=== PATIENT | male | born 1985 | race Hispanic/Latino ===

== ENCOUNTER 2016-04-30 21:40 | Inpatient (IN) | payer MEDICAID ==
[2016-05-01] MEDS ORDERED: NACL 0.9% 1000 ML 1,000 ML IV ONE (08:36)
[2016-05-01] MEDS ORDERED: ZOSYN/NS 4.5GM/100ML 4.5 GM/100 ML VIAL IV ONE ×2 (08:36→10:02)
[2016-05-01] MEDS ORDERED: VANCOMYCIN VIAL 1,250 MG in NACL 0.9% 250ML 250 ML IV ONE (09:00)
[2016-05-01] MEDS ORDERED: VANCOMYCIN PHARMACY TO DOSE IV SCH (09:00)
[2016-05-01 09:31] LABS: Alanine Aminotransferase 31 units/L (7-56); Albumin 4.2 g/dL (3.9-5); Albumin/Globulin Ratio 1.1 %; Alkaline Phosphatase 77 units/L (35-129); Anion Gap 18 mmol/L; Bilirubin,Direct 0.2 mg/dL (0-0.2); Bilirubin,Total 1.2 mg/dL (0.1-1.2); Blood Urea Nitrogen 8 mg/dL (9-20); Calcium 9.7 mg/dL (8.4-10.2); Carbon Dioxide 26 mmol/L (22-30); Chloride 94.9 mmol/L (98-107); Glucose 208 mg/dL (75-100); Potassium 4.6 mmol/L (3.6-5.0); Sodium 134 mmol/L (137-145)
[2016-05-01 09:36] LABS: INR 1.04 (0.87-1.13)
[2016-05-01 09:41] LABS: Hemoglobin TNR gm/dl (11.8-15.2); Red Blood Count TNR M/mm3 (3.65-5.03); White Blood Count TNR K/mm3 (4.5-11.0)
[2016-05-01 09:42] LABS: Hematocrit TNR % (35.5-45.6); Mean Corpuscular HGB Conc TNR % (32-34); Mean Corpuscular Hemoglobin TNR pg (28-32); Mean Corpuscular Volume TNR fl (84-94)
[2016-05-01 09:48] LABS: Mean Platelet Volume TNR fl (6-12); Platelet Count TNR K/mm3 (140-440); Red Cell Distribution Width TNR % (13.2-15.2)
[2016-05-01 09:49] LABS: Basophils % (Auto) TNR % (0.0-1.8); Eosinophils % (Auto) TNR % (0.0-4.3)
[2016-05-01 09:50] LABS: Diff Status TNR
[2016-05-01] MEDS ORDERED: MILK OF MAGNESIA PO PRN (09:58)
[2016-05-01] MEDS ORDERED: D50W (25GM) IV PRN (09:58)
[2016-05-01] MEDS ORDERED: DULCOLAX PR PRN (09:58)
[2016-05-01] MEDS ORDERED: PERCOCET 5/325 PO PRN (09:58)
[2016-05-01] MEDS ORDERED: TYLENOL PO PRN (09:58)
[2016-05-01] MEDS ORDERED: ZOFRAN IV PRN (09:58)
[2016-05-01] MEDS ORDERED: MORPHINE IV PRN (09:58)
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
[2016-05-01] MEDS ORDERED: LOVENOX SUB-Q SCH (10:00)
[2016-05-01] MEDS ORDERED: SYNTHROID PO SCH (10:00)
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
[2016-05-01 10:08] LABS: Basophils % (Auto) 0.8 % (0.0-1.8); Eosinophils % (Auto) 0.4 % (0.0-4.3); Hematocrit 41.4 % (35.5-45.6); Hemoglobin 14.1 gm/dl (11.8-15.2); Mean Corpuscular HGB Conc 34 % (32-34); Mean Corpuscular Hemoglobin 27 pg (28-32); Mean Corpuscular Volume 79 fl (84-94); Platelet Count 199 K/mm3 (140-440); Red Blood Count 5.25 M/mm3 (3.65-5.03); Red Cell Distribution Width 13.2 % (13.2-15.2); White Blood Count 11.2 K/mm3 (4.5-11.0)
[2016-05-01] MEDS ORDERED: BABY ASPIRIN PO ONE (10:09)
--- NOTE | 2016-05-01 10:17 | XRay Report ---
AP CHEST :05/01/16 CLINICAL: Fever. COMPARISON:08/01/10 FINDINGS: Normal heart and pulmonary vasculature. The lungs are normally expanded and clear. The bones and soft tissues are normal. IMPRESSION: Normal chest.
--- NOTE | 2016-05-01 10:19 | XRay Report ---
RIGHT FOOT 2 VIEWS: 05/01/16 08:39:00 CLINICAL: Diabetic foot infection. FINDINGS: Moderate soft tissue swelling of the forefoot and midfoot. No soft tissue air or firm body. No erosive changes in the bones. The bones of the midfoot are fused. IMPRESSION: Nonspecific soft tissue edema no signs of osteomyelitis. Neuropathic changes in the midfoot.
[2016-05-01 11:12] LABS: Bilirubin,Urine NEG (Negative); Blood,Urine NEG (Negative); Ketones,Urine NEG (Negative); Leukocyte Esterase,Urine NEG (Negative); Mucus,Urine FEW /HPF; Nitrite,Urine NEG (Negative); Protein,Urine <15 mg/dL mg/dL (Negative); Urobilinogen,Urine < 2.0 mg/dL (<2.0); WBC,Urine < 1.0 /HPF (0.0-6.0)
[2016-05-01] MEDS: LOVENOX SUB-Q SCH (12:04)
[2016-05-01] MEDS: NEURONTIN PO SCH ×3 (12:04→23:31)
[2016-05-01] MEDS: GLUCOPHAGE PO SCH (12:04)
[2016-05-01] MEDS: SYNTHROID PO SCH (13:07)
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
[2016-05-01] MEDS: ZOSYN/NS 4.5GM/100ML 4.5 GM/100 ML VIAL IV SCH (17:09)
[2016-05-01] MEDS ORDERED: NON-FORMULARY (Lovastatin [Altoprev] 40 MG) PO SCH (18:00)
[2016-05-01] MEDS: NACL 0.9% 1000 ML 1,000 ML IV SCH (18:48)
[2016-05-01] MEDS ORDERED: VANCOMYCIN VIAL 1,250 MG in NACL 0.9% 250ML 250 ML IV SCH (22:00)
[2016-05-01] MEDS: ZOCOR PO SCH (23:30)
--- NOTE | 2016-05-02 01:36 | Admit Criteria Form ---
Admission Criteria Documentation: SKIN AND WOUND CARE Clinical Indications for Inpatient Care (Place 'X' for any and all applicable criteria): Ongoing inpatient care may be indicated for pressure, venous, arterial, or neuropathic ulcers, with ANY ONE of the following (2)(3)(8)(9)(21)(25): [ ]I. Need for ANY ONE of the following(26) [ ]a) Pressure ulcer closure procedures [ ]b) Skin grafting [ ]c) Wound debridement [ ]d) Dressing change under general anesthesia [ ]e) Arterial revascularization procedures(19) (Also use Aortofemoral or Aortoiliac Bypass or Femoral Popliteal Bypass Criteria as appropriate) [ ]f) Amputation (Also use Foot: Transmetatarsal Amputation or Knee: Amputation Above or Below Knee Criteria as appropriate) [ ]g) Diverting colostomy [ ]h) Other significant surgical treatment [X ]II. Infection requiring inpatient care as indicated by ALL of the following (27) [ X]a) ANY ONE of the following signs of infection: [ ]i) Poorly approximated incision line. [ X]ii) Excessive drainage [ ]iii) Foul odor [ ]iv) Pus [ ]v) Increased redness [ ]vi) Breakdown in tissue after suture removal [ ]vii) Fever [ X]b) ANY ONE of the following findings: [ ]i) Mental status changes [ ]ii) Dehydration [ ]iii) Bacteremia [ ]iv) Perineal infection [ ]v) Hemodynamic instability [X ]vi) High-risk conditions, such as ANY ONE of the following: [ X]1) Poorly controlled diabetes [ ]2) Cirrhosis [ ]3) Neutropenia [ ]4) Asplenia [ ]5) HIV infection [ ]6) Immunosuppression Extended stay beyond goal length of stay for primary condition may be needed until ALL of the following are present(1)(2)(13)(21)(27): [ ]a) Tissue necrosis absent or treatment plan manageable at lower level of care [ ]b) Fistulas, tunneling, or underlying deep tissue infection absent or treated [ ]c) Purulence and tissue breakdown absent or improved [ ]d) Ulcer surgical repair absent or healing without complications [ ]e) Wound infection absent or manageable at lower level of care [ ]f) Comorbidities absent or manageable at lower level of care The original [facility] [employer] content created by Rafat Chávez has been revised. The portions of the content which have been revised are identified through the use of italic text or in bold, and [facility] has neither reviewed nor approved the modified material. All other unmodified content is copyright [facility]. Please see references footnoted in the original [facility] edition 2016 Admission Criteria Met: Yes
[2016-05-02] MEDS: ZOSYN/NS 4.5GM/100ML 4.5 GM/100 ML VIAL IV SCH ×3 (04:18→17:00)
[2016-05-02] MEDS: NEURONTIN PO SCH ×3 (06:21→21:48)
[2016-05-02] MEDS: SYNTHROID PO SCH (06:21)
[2016-05-02 08:53] LABS: Basophils % (Auto) 0.2 % (0.0-1.8); Eosinophils % (Auto) 1.3 % (0.0-4.3); Hematocrit 39.1 % (35.5-45.6); Hemoglobin 12.9 gm/dl (11.8-15.2); Mean Corpuscular HGB Conc 33 % (32-34); Mean Corpuscular Hemoglobin 26 pg (28-32); Mean Corpuscular Volume 79 fl (84-94); Platelet Count 187 K/mm3 (140-440); Red Blood Count 4.97 M/mm3 (3.65-5.03); Red Cell Distribution Width 13.2 % (13.2-15.2); White Blood Count 8.5 K/mm3 (4.5-11.0)
[2016-05-02 09:12] LABS: Alanine Aminotransferase 28 units/L (7-56); Albumin 3.4 g/dL (3.9-5); Albumin/Globulin Ratio 1.1 %; Alkaline Phosphatase 61 units/L (35-129); Anion Gap 18 mmol/L; BUN/Creatinine Ratio 8.75; Blood Urea Nitrogen 7 mg/dL (9-20); Calcium 8.8 mg/dL (8.4-10.2); Carbon Dioxide 25 mmol/L (22-30); Chloride 101.1 mmol/L (98-107); Glucose 170 mg/dL (75-100); Sodium 140 mmol/L (137-145); Total Protein 6.6 g/dL (6.3-8.2)
[2016-05-02] MEDS: VANCOMYCIN/NS 1 GM/250 ML 1 GM/250 ML BAG IV SCH ×2 (10:00→19:40)
[2016-05-02] MEDS: LOVENOX SUB-Q SCH (10:00)
[2016-05-02] MEDS: GLUCOPHAGE PO SCH (10:01)
--- NOTE | 2016-05-02 10:18 | Magnetic Resonance Report ---
MRI RIGHT FOOT WITHOUT AND WITH CONTRAST: 05/02/16 16:51:00 CLINICAL: Diabetic foot infection. COMPARISON:05/01/16 foot x-ray TECHNIQUE: Sagittal, coronal and axial T1, coronal and axial T2 fat sat, sagittal STIR and sagittal, coronal and axial postcontrast T1 fat sat sequences on a 1.5 [place] magnet. 12 cc of Multihance was injected intravenously for the contrast portion of the exam and consent was obtained prior to the administration of contrast. FINDINGS: Soft tissue edema of the dorsum of the forefoot and midfoot and soft tissue edema of the lateral ankle. Deep soft tissue edema but no abscess. The bones have normal marrow signal on T1 and there are no erosive changes in the bones. The fifth toe demonstrates mild hyperintense signal on STIR and T1 fat-sat postcontrast sequences but the marrow signal is normal on T1 without fat sat. No abnormal marrow enhancement or lack of enhancement. IMPRESSION: Cellulitis with greater involvement of the dorsum of the foot and the lateral ankle soft tissues. No abscess. No definitive signs of osteomyelitis.
--- NOTE | 2016-05-02 11:58 | Consultation ---
History of Present Illness - Reason for Consult Consult date: 05/02/16 Right foot gangrene - History of Present Illness The pateint is a 30-year-old male with a history of a crush injury to his right foot approximately 11 years ago. He underwent multiple procedures including skin grafting at that time. He currently follows with Dr. Dos Santos podiatry. He presents with ischemic ulcerations first metatarsal and fifth metatarsal. His posterior tibial pulses are symmetric bilaterally. Faint dorsalis pedis pulse on the right. Palpable dorsalis his pulse on the left. No significant complaints of pain or drainage. Past History Past Medical History: diabetes, hyperlipidemia, hypothyroidism Past Surgical History: Other (multiple reconstructive right foot surgeries) Social history: no significant social history Family history: no significant family history Medications and Allergies Allergies Allergy/AdvReac Type Severity Reaction Status Date / Time No Known Allergies Allergy Verified 11/05/15 00:54 Home Medications Medication Instructions Recorded Confirmed Last Taken Type Gabapentin [Neurontin] 300 mg PO Q8HR 11/05/15 05/01/16 1 Day Ago History 300 Levothyroxine [Synthroid] 75 mcg PO QAM 11/05/15 05/01/16 1 Day Ago History 75 Lovastatin [Altoprev] 40 mg PO QPM 11/05/15 05/01/16 1 Day Ago History 40 Metformin HCl [Glucophage] 500 mg PO DAILY 11/05/15 05/01/16 1 Day Ago History 500 Cephalexin [Keflex] 500 mg PO Q12HR 05/01/16 05/01/16 Unknown History Active Meds: Active Medications Acetaminophen (Tylenol) 650 mg PO Q4H PRN PRN Reason: Pain MILD(1-3)/Fever >100.5/BELCHER Bisacodyl (Dulcolax) 10 mg CA QDAY PRN PRN Reason: Constipation unrelieved by MOM Dextrose (D50w (25gm)) 50 ml IV PRN PRN PRN Reason: Hypoglycemia Enoxaparin Sodium (Lovenox) 40 mg SUB-Q QDAY@1000 DAVID Last Admin: 05/02/16 10:00 Dose: 40 mg Gabapentin (Neurontin) 300 mg PO Q8HR DAVID Last Admin: 05/02/16 06:21 Dose: 300 mg Sodium Chloride (Nacl 0.9% 1000 Ml) 1,000 mls @ 100 mls/hr IV DIRECT DAVID Last Admin: 05/01/16 18:48 Dose: 100 mls/hr Piperacillin Sod/Tazobactam Sod (Zosyn/Ns 4.5gm/100ml) 4.5 gm in 100 mls @ 200 mls/hr IV Q8H [facility] Last Admin: 05/02/16 04:18 Dose: 200 mls/hr Vancomycin HCl (Vancomycin/Ns 1 Gm/250 Ml) 1 gm in 250 mls @ 166.667 mls/hr IV Q8H [facility] Last Admin: 05/02/16 10:00 Dose: 166.667 mls/hr Insulin Human Regular (Novolin R) 0 units SUB-Q ACHS [facility] PRN Reason: Protocol Last Admin: 05/02/16 07:57 Dose: Not Given Levothyroxine Sodium (Synthroid) 75 mcg PO DAILY@0600 [facility] Last Admin: 05/02/16 06:21 Dose: 75 mcg Magnesium Hydroxide (Milk Of Magnesia) 30 ml PO Q4H PRN PRN Reason: Constipation Metformin HCl (Glucophage) 500 mg PO DAILY [facility] Last Admin: 05/02/16 10:01 Dose: 500 mg Morphine Sulfate (Morphine) 2 mg IV Q4H PRN PRN Reason: Pain, Moderate (4-6) Ondansetron HCl (Zofran) 4 mg IV Q8H PRN PRN Reason: N/V unrelieved by Reglan Oxycodone/Acetaminophen (Percocet 5/325) 1 tab PO Q6H PRN PRN Reason: Pain, Moderate (4-6) Simvastatin (Zocor) 20 mg PO QHS [facility] Last Admin: 05/01/16 23:30 Dose: 20 mg Vancomycin HCl (Vancomycin Pharmacy To Dose) 1 each IV PKCONSULT [facility] PRN Reason: Protocol Review of Systems All systems: negative Exam - Constitutional Vitals: Temp Pulse Resp BP Pulse Ox 97.6 F 74 18 104/74 99 05/02/16 08:20 05/02/16 08:20 05/02/16 08:20 05/02/16 08:20 05/02/16 08:20 General appearance: Present: no acute distress - EENT Eyes: Present: PERRL, EOM intact ENT: hearing intact - Neck Neck: Present: supple, normal ROM - Respiratory Respiratory effort: normal - Extremities Extremities: abnormal (per HPI) - Abdominal General gastrointestinal: Present: deferred Male genitourinary: Present: deferred - Rectal Rectal Exam: deferred - Psychiatric Psychiatric: appropriate mood/affect, cooperative - Neurologic Neurologic: CNII-XII intact, no focal deficits Results - Labs CBC & Chem 7: 05/02/16 08:04 05/02/16 08:04 Labs: Abnormal lab results 05/01/16 05/02/16 05/02/16 Range/Units 21:45 06:50 08:04 MCV 79 L (84-94) fl MCH 26 L (28-32) pg Haskell % (Auto) 9.3 H (0.0-7.3) % Seg Neutrophils % 71.7 H (40.0-70.0) % BUN (9-20) mg/dL Glucose (75-100) mg/dL POC Glucose 172 H 147 H (70-105) Albumin (3.9-5) g/dL 05/02/16 Range/Units 08:04 MCV (84-94) fl MCH (28-32) pg Haskell % (Auto) (0.0-7.3) % Seg Neutrophils % (40.0-70.0) % BUN 7 L (9-20) mg/dL Glucose 170 H (75-100) mg/dL POC Glucose (70-105) Albumin 3.4 L (3.9-5) g/dL Assessment and Plan Patient with focal ischemic changes to the plantar aspect of his right foot distally. Would suspect his crush injury resulted in aberrant arterial flow to his digits. We'll obtain a vascular lab ultrasound however, the patient may ultimately require angiography to determine the vascular inflow to the foot. Additionally, would recommend consultation with the patient's desk assistant Dr. Dos Santos.
--- NOTE | 2016-05-02 12:21 | Progress Note ---
Assessment and Plan Assessment and plan: Patient is a 30-year-old male with past medical history of diabetes mellitus, hypertension, hyperlipidemia, currently with right foot ulcer that is followed by Dr. Dos Santos, presented to the hospital with red and swollen right foot for the history of multiple traumas as far back as 1995. He has not had any previous surgery. Remarkably, they state he "almost lost his foot once due to infection" while they are presenting very late for care. - Patient Problems (1) Diabetic infection of right foot Current Visit: Yes Status: Acute Plan to address problem: -With cellulitis rule out osteomyelitis rule out abscess -ID input appreciated, continue to await cultures. -Consult wound care -Continue antibiotics at this point (2) Hyperlipidemia Current Visit: Yes Status: Acute Qualifiers: Hyperlipidemia type: H Plan to address problem: Continue statin (3) Hypertension Current Visit: Yes Status: Acute Qualifiers: Hypertension type: H Plan to address problem: Continue blood pressure control (4) Diabetes mellitus Current Visit: Yes Status: Acute Qualifiers: Diabetes mellitus type: D Diabetes mellitus complication status: D Diabetes mellitus complication detail: D Diabetic retinopathy severity: D Proliferative retinopathy type: P Diabetes mellitus macular edema: D Diabetes mellitus correction insulin use: D Laterality: L Chronic kidney disease stage: C Plan to address problem: Continue metformin and insulin sliding scales. Accu-Cheks before meals and daily at bedtime. History Interval history: Follow-up right foods ulcer Patient seen and examined this morning in no acute distress Denies any chest pain, nausea, vomiting, diarrhea No fever noted blood pressure controlled No adverse events reported to me by nursing staff Hospitalist Physical - Physical exam Narrative exam: VITAL SIGNS: Reviewed. GENERAL: The patient appeared well nourished and normally developed. Vital signs as documented. HEAD: No signs of head trauma. EYES: Pupils are equal. Extraocular motions intact. EARS: Hearing grossly intact. MOUTH: Oropharynx is normal. NECK: No adenopathy, no JVD. CHEST: Chest with clear breath sounds bilaterally. No wheezes, rales, or rhonchi. CARDIAC: Regular rate and rhythm. S1 and S2, without murmurs, gallops, or rubs. VASCULAR: No Edema. Peripheral pulses normal and equal in all extremities. ABDOMEN: Soft, without detectable tenderness. No sign of distention. No rebound or guarding, and no masses palpated. Bowel Sounds normal. MUSCULOSKELETAL: Right foot toe with drainage serosanguineous. NEUROLOGIC EXAM: Alert and oriented x 3. No focal sensory or strength deficits. Speech normal. Follows commands. PSYCHIATRIC: Mood normal. SKIN: No rash or lesions. - Constitutional Vitals: Temp Pulse Resp BP Pulse Ox 97.6 F 74 18 104/74 99 05/02/16 08:20 05/02/16 08:20 05/02/16 08:20 05/02/16 08:20 05/02/16 08:20 General appearance: Present: no acute distress Results - Labs CBC & Chem 7: 05/02/16 08:04 05/02/16 08:04 Labs: Laboratory Last Values WBC 8.5 K/mm3 (4.5-11.0) 05/02/16 08:04 RBC 4.97 M/mm3 (3.65-5.03) 05/02/16 08:04 Hgb 12.9 gm/dl (11.8-15.2) 05/02/16 08:04 Hct 39.1 % (35.5-45.6) 05/02/16 08:04 MCV 79 fl (84-94) L 05/02/16 08:04 MCH 26 pg (28-32) L 05/02/16 08:04 MCHC 33 % (32-34) 05/02/16 08:04 RDW 13.2 % (13.2-15.2) 05/02/16 08:04 Plt Count 187 K/mm3 (140-440) 05/02/16 08:04 Lymph % (Auto) 17.5 % (13.4-35.0) 05/02/16 08:04 Mckean % (Auto) 9.3 % (0.0-7.3) H 05/02/16 08:04 Eos % (Auto) 1.3 % (0.0-4.3) 05/02/16 08:04 Baso % (Auto) 0.2 % (0.0-1.8) 05/02/16 08:04 Lymph # 1.5 K/mm3 (1.2-5.4) 05/02/16 08:04 Mckean # 0.8 K/mm3 (0.0-0.8) 05/02/16 08:04 Eos # 0.1 K/mm3 (0.0-0.4) 05/02/16 08:04 Baso # 0.0 K/mm3 (0.0-0.1) 05/02/16 08:04 Add Manual Diff TNR 05/01/16 08:45 Seg Neutrophils % 71.7 % (40.0-70.0) H 05/02/16 08:04 Seg Neutrophils # 6.1 K/mm3 (1.8-7.7) 05/02/16 08:04 PT 13.5 Sec. (12.2-14.9) 05/01/16 08:45 INR 1.04 (0.87-1.13) 05/01/16 08:45 Sodium 140 mmol/L (137-145) 05/02/16 08:04 Potassium 4.0 mmol/L (3.6-5.0) 05/02/16 08:04 Chloride 101.1 mmol/L (98-107) 05/02/16 08:04 Carbon Dioxide 25 mmol/L (22-30) 05/02/16 08:04 Anion Gap 18 mmol/L 05/02/16 08:04 BUN 7 mg/dL (9-20) L 05/02/16 08:04 Creatinine 0.8 mg/dL (0.8-1.5) 05/02/16 08:04 Estimated GFR > 60 ml/min 05/02/16 08:04 BUN/Creatinine Ratio 8.75 % 05/02/16 08:04 Glucose 170 mg/dL (75-100) H 05/02/16 08:04 POC Glucose 206 (70-105) H 05/02/16 11:56 Lactic Acid 1.7 mmol/L (0.7-2.0) 05/01/16 08:45 Calcium 8.8 mg/dL (8.4-10.2) 05/02/16 08:04 Total Bilirubin 1.0 mg/dL (0.1-1.2) 05/02/16 08:04 Direct Bilirubin 0.2 mg/dL (0-0.2) 05/01/16 08:45 Indirect Bilirubin 1.0 mg/dL 05/01/16 08:45 AST 17 units/L (5-40) 05/02/16 08:04 ALT 28 units/L (7-56) 05/02/16 08:04 Alkaline Phosphatase 61 units/L (35-129) 05/02/16 08:04 C-Reactive Protein 11.10 mg/dL (0.00-1.30) H 05/01/16 08:45 Total Protein 6.6 g/dL (6.3-8.2) 05/02/16 08:04 Albumin 3.4 g/dL (3.9-5) L 05/02/16 08:04 Albumin/Globulin Ratio 1.1 % 05/02/16 08:04 Urine Color Yellow (Yellow) 05/01/16 10:45 Urine Turbidity Clear (Clear) 05/01/16 10:45 Urine pH 5.0 (5.0-7.0) 05/01/16 10:45 Ur Specific Elba 1.012 (1.003-1.030) 05/01/16 10:45 Urine Protein <15 mg/dl mg/dL (Negative) 05/01/16 10:45 Urine Glucose (UA) >=500 mg/dL (Negative) 05/01/16 10:45 Urine Ketones Neg mg/dL (Negative) 05/01/16 10:45 Urine Blood Neg (Negative) 05/01/16 10:45 Urine Nitrite Neg (Negative) 05/01/16 10:45 Urine Bilirubin Neg (Negative) 05/01/16 10:45 Urine Urobilinogen < 2.0 mg/dL (<2.0) 05/01/16 10:45 Ur Leukocyte Esterase Neg (Negative) 05/01/16 10:45 Urine WBC (Auto) < 1.0 /HPF (0.0-6.0) 05/01/16 10:45 Urine RBC (Auto) 2.0 /HPF (0.0-6.0) 05/01/16 10:45 U Epithel Cells (Auto) < 1.0 /HPF (0-13.0) 05/01/16 10:45 Urine Mucus Few /HPF 05/01/16 10:45 - Imaging and Cardiology Chest x-ray: image reviewed (no acute pathology on my personal review) Imaging and Cardiology: X-ray also does not show any evidence of osteomyelitis.
[2016-05-02] MEDS: ZOCOR PO SCH (21:48)
[2016-05-02] MEDS: NACL 0.9% 1000 ML 1,000 ML IV SCH (23:10)
[2016-05-03] MEDS: ZOSYN/NS 4.5GM/100ML 4.5 GM/100 ML VIAL IV SCH ×2 (02:01→08:00)
[2016-05-03] MEDS: VANCOMYCIN/NS 1 GM/250 ML 1 GM/250 ML BAG IV SCH ×2 (02:03→10:00)
[2016-05-03] MEDS: NEURONTIN PO SCH ×2 (06:03→13:18)
[2016-05-03] MEDS: SYNTHROID PO SCH (06:04)
[2016-05-03 06:05] LABS: Hematocrit 37.7 % (35.5-45.6); Hemoglobin 12.6 gm/dl (11.8-15.2); Mean Corpuscular HGB Conc 34 % (32-34); Mean Corpuscular Hemoglobin 26 pg (28-32); Mean Corpuscular Volume 78 fl (84-94); Platelet Count 181 K/mm3 (140-440); Red Blood Count 4.81 M/mm3 (3.65-5.03); Red Cell Distribution Width 13.2 % (13.2-15.2); White Blood Count 7.7 K/mm3 (4.5-11.0)
[2016-05-03 06:39] LABS: Anion Gap 16 mmol/L; Blood Urea Nitrogen 6 mg/dL (9-20); Calcium 8.9 mg/dL (8.4-10.2); Carbon Dioxide 28 mmol/L (22-30); Chloride 100.8 mmol/L (98-107); Glucose 132 mg/dL (75-100); Potassium 3.9 mmol/L (3.6-5.0); Sodium 141 mmol/L (137-145)
--- NOTE | 2016-05-03 09:17 | Discharge Summary ---
Providers - Providers Date of Admission: 05/01/16 12:48 Date of discharge: 05/03/16 Attending physician: KAYE CONROY MD 05/01/16 14:31 Consult to Physician [CONS] Routine Consulting Provider: SISSY CORBIN Reason For Exam: diabetic foot infection Place consult to:: ID Notified:: Y Was contact made?: Yes If yes, spoke with:: A/S RADHA Time called:: 14:45 05/02/16 11:08 Consult to Wound/ET Nurse [CONS] Routine Reason For Exam: wound eval Primary care physician: [employer] Hospitalization Reason for admission: Diabetic foot infection Condition: Stable Hospital course: Pancho Cazares is a 30 y/o male with type 2 DM with associated neuropathy, hyperlipidemia, and hypothyroidism who has a history of right foot trauma w 1995 and has been followed by his scientific informatics analyst, Dr. Dos Santos for right foot diabetic ulcers who was admitted to [facility] on 05/01/16 with worsening right foot pain, redness and swelling over 1 week's time with bloody discharge from the base of his right fifth toe. Patient on admission did not demonstrate any fever. He did have culture of the wound showing polymicrobial etiology but only group B beta strep isolated noted. I did discuss with infectious disease umbilical and the patient being discharged on following up with Dr. Dos Santos. MRI of the foot showed significant cellulitic area but no osteomyelitis. Would care did see the patient bedside debridement was done. An wound dressing and instructions were provided. Patient is stable at this point for discharge Disposition: DISCHARGED TO HOME OR SELFCARE Time spent for discharge: 35 - Discharge Diagnoses (1) Diabetic infection of right foot Status: Acute (2) Hyperlipidemia Status: Acute Qualifiers: Hyperlipidemia type: H (3) Hypertension Status: Acute Qualifiers: Hypertension type: H (4) Diabetes mellitus Status: Acute Qualifiers: Diabetes mellitus type: D Diabetes mellitus complication status: D Diabetes mellitus complication detail: D Diabetic retinopathy severity: D Proliferative retinopathy type: P Diabetes mellitus macular edema: D Diabetes mellitus longterm insulin use: D Laterality: L Chronic kidney disease stage: C (5) Diabetic neuropathy Status: Acute Qualifiers: Diabetes mellitus type: D Diabetes mellitus complication detail: D Core Measure Documentation - Palliative Care Palliative Care/ Comfort Measures: Not Applicable - Core Measures Any of the following diagnoses?: none - VTE Discharge Requirements Deep Vein Thrombosis/Pulmonary Embolism Present on Admission: No Exam - Physical Exam Narrative exam: VITAL SIGNS: Reviewed. GENERAL: The patient appeared well nourished and normally developed. Vital signs as documented. HEAD: No signs of head trauma. EYES: Pupils are equal. Extraocular motions intact. EARS: Hearing grossly intact. MOUTH: Oropharynx is normal. NECK: No adenopathy, no JVD. CHEST: Chest with clear breath sounds bilaterally. No wheezes, rales, or rhonchi. CARDIAC: Regular rate and rhythm. S1 and S2, without murmurs, gallops, or rubs. VASCULAR: No Edema. Peripheral pulses normal and equal in all extremities. ABDOMEN: Soft, without detectable tenderness. No sign of distention. No rebound or guarding, and no masses palpated. Bowel Sounds normal. MUSCULOSKELETAL: Right foot toe with drainage serosanguineous. NEUROLOGIC EXAM: Alert and oriented x 3. No focal sensory or strength deficits. Speech normal. Follows commands. PSYCHIATRIC: Mood normal. SKIN: Right foot toe ulcer. no overt drainage. - Constitutional Vitals: Temp Pulse Resp BP Pulse Ox 97.5 F L 70 14 110/71 99 05/03/16 07:13 05/03/16 07:13 05/03/16 07:13 05/03/16 07:13 05/03/16 07:13 Plan Activity: advance as tolerated, fall precautions Diet: diabetic Special Instructions: record blood sugar diary Durable Medical Equipment Needed Upon Discharge: Crutches Additional Instructions: can follow with ID Dr Corbin in 1-2 weeks. Continue home dose diabetic medications. PCP to evaluate addition of ACEI OR ARB for renal protection. Must follow with opthalmologist 2 x a year. Follow up with: ADRIANA HENRY MD [Primary Care Provider] - 3-5 Days ALEXANDER DOS SANTOS DPM [Staff Physician] - 7 Days SISSY CORBIN MD [Staff Physician] - 7 Days Prescriptions: Clindamycin [Clindamycin CAP] 600 mg PO Q8H 14 Days
[2016-05-03] MEDS: LOVENOX SUB-Q SCH (10:00)
[2016-05-03] MEDS: GLUCOPHAGE PO SCH (10:00)
[2016-05-03] MEDS ORDERED: FLUARIX QUAD 2016-2017(36 MOS+) IM ONE (12:00)
--- NOTE | 2016-05-03 12:05 | Progress Note ---
Assessment and Plan Current antibiotics: Zosyn 4.5 g IV q8h 05/01 --> Vancomycin IV 05/01 --> Previous antibiotics: Keflex 500 mg PO BID (04/26-05/01) ASSESSMENT: Pancho Cazares is a 30 y/o male with type 2 DM with associated neuropathy, hyperlipidemia, and hypothyroidism who has a history of right foot trauma with multiple surgeries in 1995 and has been followed by his document control associate, Dr. Dos Santos for right foot diabetic ulcers who was admitted to [facility] on 05/01/16 with worsening right foot pain, redness and swelling over 1 week's time with bloody discharge from the base of his right fifth toe. Problem list: 1. Right foot cellulitis - No abscess/osteomyelitis seen on MRI - Suspect polymicrobial etiology but only Group B Streptococcus isolated to date - Hx of right foot trauma with surgery 1995 2. DM 2 - Poor glycemic control -Peripheral neuropathy 3. Hypothyroidism 4. Hyperlipidemia PLAN: 1. Await further culture data 2. Continue for now on IV Zosyn and vancomycin but should be able to de- escalate therapy with finalization of cultures 3.Podiatry follow-up with Dr. Dos Santos 4. Medical management with glycemic control as per the Hospitalist service Justen Tidwell MD [facility] Office: [phone] Subjective Date of service: 05/03/16 Principal diagnosis: Right diabetic foot infection Interval history: No new complaints except worried about outpatient wound care. ROS: No subjective fever or chills. No nausea, vomiting or diarrhea. No shortness of breath, cough or pleuritic chest pain Objective - Exam Narrative Exam: GENERAL: Well-developed well-nourished appearing male who is alert and in no acute distress. HEENT: Pupils are equal reactive to light and accommodation. Conjunctiva clear. Oropharynx is normal with no evidence of oral candidiasis or pharyngitis. NECK: Supple. No enlargement of the thyroid gland. No significant cervical lymphadenopathy. No jugular venous distention at 30. LUNGS: Clear with no adventitious sounds. HEART: Regular rate. S1 and S2 are normal. There are no murmurs, gallops, clicks or rubs heard. ABDOMEN: Soft and nontender. Liver and spleen are not palpably enlarged or tender. No palpable masses. Bowel sounds are normoactive. EXTREMITIES: High arch deformity of right foot which healed scars. Bunion at base of right great toe. Seropurulent discharge from base of right fifth toe. Mild right foot redness and warmth. No focal point tenderness. Pulses 1+. No ischemic findings. SKIN: No other rash, ulcers or wounds. NEUROLOGIC: Decreased sensation over distal extremities in a stocking distribution. - Constitutional Vitals: Vital Signs Temp Pulse Resp BP Pulse Ox 97.5 F L 70 14 110/71 99 05/03/16 07:13 05/03/16 07:13 05/03/16 07:13 05/03/16 07:13 05/03/16 07:13 Temperature -Last 24 Hours Temperature 97.5 F Temperature 98.6 F Temperature 98.6 F - Labs CBC & Chem 7: 05/03/16 05:36 05/03/16 05:36 Labs: Abnormal lab results Microbiology 05/01/16 09:31 Foot - Right Wound Culture - Preliminary Beta Hemolytic Strep Group B; heavy growth No WBCs seen on Gram stain 05/01/16 08:45 Peripheral/Venous Blood Culture - Preliminary NO GROWTH AFTER 48 HOURS 05/01/16 08:45 Peripheral/Venous Blood Culture - Preliminary NO GROWTH AFTER 48 HOURS Imagin/12: MRI of the right foot: Cellulitis with greater involvement of the dorsum of the foot and lateral ankle but no abscess or definite signs of osteomyelitis.
[2016-05-03 14:48] VITALS: BP 116/75
--- NOTE | 2016-05-03 15:32 | Progress Note ---
Assessment and Plan Pre-limb report: BLE ARTERIAL DUPLEX DONE WITH ZORAIDA'S.VERY MINIMAL PLAQUE SEEN.MULTIPHASIC WAVEFORMS OBTAINED THROUGHOUT VESSELS VISUALIZED.RESTING ZORAIDA'S : RT-0.99;LT-1.04;TBI'S: RT-0.79;LT-0.78. Non-invasive arterial duplex does not show significant macrovascular dz. He may benefit from arteriogram to further assess his vasculature given the failure of his wounds to improve. Not emergent. Pt is for d/c later today. Pt can f/u in our office as an outpt. for additional work up. Discussed with pt who states understanding and agrees. - Patient Problems (1) Diabetic infection of right foot Current Visit: Yes Status: Acute Subjective Date of service: 05/03/16 Principal diagnosis: Right diabetic foot infection Interval history: Pt is without complaint at present. Objective - Constitutional Vitals: Vital Signs - 12hr 05/03/16 05/03/16 07:13 14:47 Temperature 97.5 F L 98.0 F Pulse Rate [ 70 84 Right] Respiratory 14 16 Rate Blood Pressure 110/71 116/75 [Right Arm] O2 Sat by Pulse 99 98 Oximetry General appearance: Present: no acute distress - EENT Eyes: EOM intact ENT: hearing intact - Neck Neck: supple - Respiratory Respiratory effort: normal Extremities: abnormal (bandages in place.) - Psychiatric Psychiatric: appropriate mood/affect, intact judgment & insight, cooperative - Labs CBC & Chem 7: 05/03/16 05:36 05/03/16 05:36 Labs: Abnormal lab results 05/02/16 05/02/16 05/03/16 Range/Units 16:59 21:19 05:36 MCV 78 L (84-94) fl MCH 26 L (28-32) pg BUN (9-20) mg/dL Creatinine (0.8-1.5) mg/dL Glucose (75-100) mg/dL POC Glucose 163 H 181 H (70-105) 05/03/16 05/03/16 Range/Units 05:36 06:27 MCV (84-94) fl MCH (28-32) pg BUN 6 L (9-20) mg/dL Creatinine 0.6 L (0.8-1.5) mg/dL Glucose 132 H (75-100) mg/dL POC Glucose 128 H (70-105)
--- NOTE | 2016-05-05 11:15 | Vascular Lab Report ---
LOWER EXTREMITY ARTERIAL DUPLEX: REASON FOR EXAM: Peripheral arterial disease. COMMENTS ON THE RIGHT: Triphasic waveforms are seen proximally. Triphasic waveforms are seen distally. No significant velocity gradients are identified. No focal significant plaque is identified. Findings are consistent with normal perfusion. Findings are consistent with the ability to heal distal wounds. COMMENTS ON THE LEFT: Triphasic waveforms are seen proximally. Biphasic waveforms are seen distally. No significant velocity gradients are identified. No focal significant plaque is identified. Findings are consistent with normal perfusion. Findings are consistent with the ability to heal distal wounds. IMPRESSION: RIGHT: Essentially normal arterial flow. LEFT:Essentially normal arterial flow.
--- NOTE | 2016-05-05 11:16 | Vascular Lab Report ---
LOWER EXTREMITY ARTERIAL PHYSIOLOGIC STUDY: REASON FOR EXAM: Peripheral arterial disease. COMMENTS ON THE RIGHT: Ankle brachial index is 0.99. This value is normal. Toe brachial index is 0.79. This value is normal. Wound healing is likely. Pulse volume recording at the level of the ankle is normal. Exercise testing was not done. COMMENTS ON THE LEFT: Ankle brachial index is 1.04. This value is normal. Toe brachial index is 0.78. This value is normal. Wound healing is likely. Pulse volume recording at the level of the ankle is normal. Exercise testing was not done. IMPRESSION: RIGHT: No hemodynamically significant arterial disease. LEFT:No hemodynamically significant arterial disease.
--- NOTE | 2016-05-07 14:22 | Query-Infection ---
"Ramiro Marshall Date:___05/07/2016 Maritime Officer/CDS:_Mariano Leiva Phone#: Exercise your independent professional judgment when responding to this query. Questions asked do not imply a particular answer is desired or expected. We greatly appreciate your clarification on this issue. Clinical Documentation States: The patient was admitted due to Cellulitis. WBC 11.2 [place] 104 Pipera/Vanco IV Clinical findings show: (please check applicable parameters) Infection, known /suspected, with some of the following indicators; Specify the infection: 3 General parameters [ ] Fever (core temp >38.30C or 100.40F) [ ] Hypothermia (core temp <36C) [ ] Heart rate >90 bpm [ ] Tachypnea: >20 bpm or pCO2 < 32 mmHg [ ] Altered mental status [ ] Significant edema / +ve fluid balance (>20 ml/kg 24 h) [ ] Hyperglycemia (Bl. glucose >110 mg/dl) w/o diabetes Inflammatory parameters [ x] Leukocytosis (white blood cell count >12,000/l) [ ] Leukopenia (white blood cell count <4,000/l) [ ] Bandemia (immature WBC > 10%) [ ] Leucocyte Left Shift [ ] Plasma procalcitonin>2 SD above the normal value Hemodynamic and tissue perfusion parameters [ ] Arterial hypotension(SBP <90 mmHg, MAP <70 mmHg,or a SBP drop >40 mmHg in adults) [ ] Hyperlactatemia (>3 mmol/l) [ ] Anion Gap (> 11mEG/l) [ ] Decreased capillary refill or mottling Organ dysfunction parameters [ ] Arterial hypoxemia (PaO2/FIO2 <300) [ ] Creatinine increase =0.5 mg/dl [ ] Acute oliguria (urine output <0.5 ml | kg |h or 45 mM/l for at least 2 hrs) [ ] Coagulation abnormalities (INR >1.5 or activated partial thromboplastin time >60 s) [ ] Ileus (absent jenny wel sounds) [ ] Thrombocytopenia (platelet count <100,000/l) [ ] Hyperbilirubinemia (plasma total bilirubin >4 mg/dl) According to the clinical indications above, can Bacteremia be further specified? If so, please indicate below and in your Progress Notes and/ or Discharge Summary. Indicate if the condition was present on admission. PHYSICIAN RESPONSE: [ ] Sepsis [ ] Severe Sepsis [ ] Septic Shock [ ] Septicemia [ ] Sepsis now resolved [ ] SIRS due to non-infectious cause with organ dysfunction [x ] SIRS due to non-infectious cause without organ dysfunction [ ] Other: [ ] Comment/Explanation: Present on Admission: [x ] Yes (Y) [ ] Clinically undeterminable (W) [ ] No (N) [ ] Ruled Out Please also document response in your Progress Notes and/or Discharge Summary and indicate if the condition was present on admission Notes: SIRS/ SIRS WITH ORGAN DYSFUNCTION Systemic inflammatory response syndrome (SIRS) generally refers to the systemic response to trauma/zabala or other insult such as Acute Myocardial Infarction, Acute Pancreatitis, and Major Surgery with symptoms including fever, tachycardia , tachypnea, and leukocytosis (1). BACTEREMIA Presence of viable bacteria in the circulating blood (2). This term is reserved for patients that do not manifest above SIRS response. SEPTICEMIA Generally refers to a systemic disease associated with the presence of pathological microorganisms or toxins in the blood, which can include bacteria, viruses, fungi or other organisms (1). SEPSIS Generally refers to SIRS due infection (1). SEVERE SEPSIS Generally refers to sepsis associated with acute organ dysfunction (1). SEPTIC SHOCK Generally refers to circulatory failure associated with severe sepsis (2), and defined as hypotension or hypoperfusion despite adequate fluid resuscitation (1 hour) (3). REFERENCES: 1. [employer]/Society of Critical Care Medicine Consensus Conference. Definitions for sepsis and organ failure and guidelines for the use of innovative therapies in sepsis. Critical Care Med 1992;20:864 - 74. 2. Lebron barclay MM, Maira MP, Case YA, Nicolas E, Yosvany D, Tonio D, Brandon J, Shiloh SM , Asad ROTHMAN, Adelina G; International Sepsis Definitions Conference. 2000 SCCM/ESICM/ACCP/ATS/SIS International Sepsis Definitions Conference. Intensive Care Med. 2002;29(4):530-8. Epub 2002Jun 15. Review. PubMed PMID:[id number] 3. ICD-9-CM Official Guidelines for Coding and Reporting 4. Medscape Drugs, Diseases and Procedures references 5. [employer]ai Textbook of Internal Medicine. 18th Edition MTDD"
--- NOTE | 2016-05-07 14:28 | Query- Debridement ---
Dear Date:___05/07/2016 Social Services Counselor/CDS:__Mariano Leiva Phone#: Exercise your independent professional judgment when responding to query. Questions asked do not imply a particular answer is desired or expected. We greatly appreciate your clarification on this issue. Clinical Documentation States: "Would care did see the patient bedside debridement was done" (Dr. Mcgill in [place] on 05/03/2016). Because there is documentation in the medical record of Debridement, clarification is needed. Please document whether this is Excisional or Nonexcisional Debridement of the wound, infection or burn. Specific type of debridement performed: [ ] Excisional: The removal of necrotic, devitalized tissue or slough by means of cutting away of tissue (the use of scissors, scalpel or curette are common). [ x] Nonexcisional: The removal of necrotic, devitalized tissue or slough by means of flushing, brushing or washing (irrigating). Please document the depth of tissue removed (i.e., skin, fascia, muscle or bone) : [ x] Skin [ ] Fascia [ ] Muscle [ ] Bone Please document the appropriate type of Debridement within the progress notes or on this form as an addendum to the patients record. (Sign and date all documentation) SHIRA
== END 2016-05-03 17:00 | disposition home health service (06) | DRG 638 ==
LOC: ED 21:40 → 3A 05-01 12:48
PROVIDERS: ADMIT Internal Medicine; ATTEND Internal Medicine
PROC: 0HDMXZZ Extraction of Right Foot Skin, External Approach (ICD-10-PCS; principal; 2016-05-03)
DX: E11.628 Type 2 diabetes mellitus with other skin complications (principal); L03.115 Cellulitis of right lower limb; R65.10 Systemic inflammatory response syndrome (SIRS) of non-infectious origin without acute organ dysfunction; E11.65 Type 2 diabetes mellitus with hyperglycemia; E11.40 Type 2 diabetes mellitus with diabetic neuropathy, unspecified; I10 Essential (primary) hypertension; E78.5 Hyperlipidemia, unspecified; E03.9 Hypothyroidism, unspecified
CPT/HCPCS: 36415; 71010; 80048; 80053; 80074; 81001; 82140; 82962; 85025; 85027; 85610; 86140; 87040; 87116; 90686; 93922; 93925; 96365; 96375; A9577; J1650; J1815; J2543; J3370; J7030; J7050